=== PATIENT | female | born 1965 | race Caucasian/White ===

== ENCOUNTER 2021-01-07 05:58 | Day surgery (SDC) | payer BC ==
[~2021-01-07] VITALS: Ht 162.6 cm; Wt 59.0 kg
[~2021-01-07 05:58] MED LIST: CA C1TAB99 PO; MULT-1203 PO; TIMO.25OS OD; TRAV2.5D OD
[2021-01-07] MEDS ORDERED: 0.9%NACL 1000ML 1,000 ML IV ONE (06:10)
[2021-01-07 06:32] VITALS: BP 114/64
[2021-01-07] MEDS ORDERED: PROPOFOL 10 MG/ML 20ML VIAL IV ONE (07:42)
[2021-01-07] MEDS ORDERED: LIDOCAINE HCL 1% 20 ML VIAL ONE (07:42)
[2021-01-07] MEDS ORDERED: PHENYLEPHRINE HCL 10 MG/ML 1ML VIAL IV ONE (07:42)
[2021-01-07 08:00] VITALS: BP 85/39
[2021-01-07 08:05] VITALS: BP 95/53
[2021-01-07 08:10] VITALS: BP 96/66
[2021-01-07 08:30] VITALS: BP 108/59
== END 2021-01-07 08:32 | disposition home or self-care (01) ==
LOC: DAH 05:58 → ENDO 05:58
PROVIDERS: ATTEND Internal Medicine
DX: Z12.11 Encounter for screening for malignant neoplasm of colon (principal); K64.0 First degree hemorrhoids; Z20.822 Contact with and (suspected) exposure to COVID-19; Z80.0 Family history of malignant neoplasm of digestive organs
CPT/HCPCS: 45378; 87635; A4215 ×2; A4221; A4222; A4223; A4606; A4620; A4657; A4663; C9803; J2370; J2704; J7030

== ENCOUNTER 2021-04-08 14:10 | Emergency (ER) | payer BC ==
[~2021-04-08] VITALS: Ht 160 cm; Wt 61.2 kg
[2021-04-08] MEDS ORDERED: MORPHINE 2 MG SYG IVP ONE (14:30)
[2021-04-08] MEDS ORDERED: ONDANSETRON 4MG INJ IVP ONE (14:30)
[2021-04-08] MEDS ORDERED: 0.9%NACL 1000ML 1,000 ML IV ONE ×2 (14:30→15:52)
[2021-04-08 14:38] LABS: BASOPHILS % (AUTO) 0.3 % (0.0-5.0); EOSINOPHILS % (AUTO) 0.2 % (0.0-8.0); HEMATOCRIT 40.6 % (36-48); LYMPHOCYTES % (AUTO) 19.4 % (21.0-51.0); MEAN CORPUSCULAR HEMOGLOBIN 29.5 pg (27.0-33.0); MEAN CORPUSCULAR VOLUME 89.2 fL (79-99); MONOCYTES % (AUTO) 4.2 % (3.0-13.0); NEUTROPHILS % (AUTO) 75.6 % (40.0-77.0); PLATELET COUNT (AUTO) 255 K/uL (130-400); RED BLOOD CELL COUNT(AUTO) 4.55 MIL/uL (4.00-5.50); WHITE BLOOD COUNT (AUTO) 10.4 K/uL (4.8-10.8)
[2021-04-08 14:41] LABS: APPEARANCE,URINE Turbid (CLEAR); BILIRUBIN,URINE Negative (NEGATIVE); COLOR,URINE Yellow (YELLOW); GLUCOSE, URINE (UA) Negative (NEGATIVE); KETONES,URINE 40 mg/dL (NEGATIVE); LEUKOCYTE ESTERASE ,URINE Trace (NEGATIVE); NITRATE,URINE Negative (NEGATIVE); OCCULT BLOOD,URINE Negative (NEGATIVE); PROTEIN,URINE Negative (NEGATIVE); UROBILINOGEN,URINE 0.2 mg/dL (0.2-1.0)
[2021-04-08 14:49] LABS: CREATININE 0.8 mg/dL (0.5-1.5); POTASSIUM 3.8 mmol/L (3.5-5.1)
[2021-04-08 14:52] LABS: BACTERIA,URINE Moderate /HPF (None Seen); MUCUS,URINE Rare LPF (None Seen); SQUAMOUS EPITHELIAL CELL,UR 0-2 /HPF (0-2)
[2021-04-08 14:53] LABS: ALBUMIN 4.4 g/dL (3.5-5.0); BILIRUBIN,TOTAL 0.6 mg/dL (0.2-1.0); TOTAL PROTEIN, SERUM 8.4 g/dL (6.0-8.3)
[2021-04-08] MEDS ORDERED: CEFTRIAXONE 1G VIAL IVP ONE (15:30)
[2021-04-08] MEDS ORDERED: CEPH500B PO (15:35)
[2021-04-08] MEDS ORDERED: ACET-2247 PO (15:35)
[2021-04-08] MEDS ORDERED: ONDANSETRON 4MG INJ ONE (15:51)
[2021-04-08] MEDS ORDERED: MORPHINE 2 MG SYG ONE (15:52)
[2021-04-08 16:36] VITALS: BP 145/81
== END 2021-04-08 16:59 | disposition home or self-care (01) ==
LOC: EDH 14:10
DX: N39.0 Urinary tract infection, site not specified (principal); N94.89 Other specified conditions associated with female genital organs and menstrual cycle; Z79.899 Other long term (current) drug therapy
CPT/HCPCS: 36415; 71045; 74176; 80053; 81001; 83690; 84484; 85025; 87088; 93005; 96361; 96374; 96375; 99284; J0696; J2405; J7030

== ENCOUNTER → 2022-05-15 | Outpatient (CLI) | payer BC ==
[~2022-05-15] MED LIST changes: +ACET-2247 PO; +CEPH500B PO; +IOHEXOL 350 MG/ML 100ML INFUS..BTL IV ONE
== END | disposition home or self-care (01) ==
LOC: RAH 07:45
PROVIDERS: ATTEND Student in an Organized Health Care Education/Training Program
DX: R94.31 Abnormal electrocardiogram [ECG] [EKG] (principal)
CPT/HCPCS: 75574; Q9967

== ENCOUNTER → 2022-11-26 | Outpatient (CLI) | payer BC ==
[~2022-11-26] MED LIST changes: -IOHEXOL 350 MG/ML 100ML INFUS..BTL IV ONE
[2022-11-26 12:50] LABS: CHOLESTEROL 166 mg/dL (<200); HDL CHOLESTEROL 55 mg/dL (35-85); LDL DIRECT 100 mg/dL (0-99); TRIGLYCERIDES 103 mg/dL (30-200)
== END | disposition home or self-care (01) ==
LOC: LAB 09:10
PROVIDERS: ATTEND Student in an Organized Health Care Education/Training Program
DX: E78.5 Hyperlipidemia, unspecified (principal)
CPT/HCPCS: 36415; 80061

== ENCOUNTER → 2023-02-11 | Outpatient (CLI) | payer OTHER | END | disposition home or self-care (01) | LOC: RAH 11:24 | PROVIDERS: ATTEND Family Medicine | DX: Z00.00 Encounter for general adult medical examination without abnormal findings (principal); E55.9 Vitamin D deficiency, unspecified; M85.89 Other specified disorders of bone density and structure, multiple sites; M85.60 Other cyst of bone, unspecified site; Z78.0 Asymptomatic menopausal state | CPT/HCPCS: 77080 ==

== ENCOUNTER → 2023-06-30 | Outpatient (CLI) | payer BC ==
[2023-06-30 12:31] LABS: CHOLESTEROL 186 mg/dL (<200); HDL CHOLESTEROL 64 mg/dL (35-85); TRIGLYCERIDES 113 mg/dL (30-200)
[2023-06-30 12:59] LABS: LDL DIRECT 109 mg/dL (0-99)
== END | disposition home or self-care (01) ==
LOC: LAB 08:54
PROVIDERS: ATTEND Student in an Organized Health Care Education/Training Program
DX: E78.5 Hyperlipidemia, unspecified (principal)
CPT/HCPCS: 36415; 80061

== ENCOUNTER → 2024-04-11 | Outpatient (CLI) | payer BC ==
--- NOTE | 2024-04-11 16:12 | HMCIMG ---
DEXA BONE DENSITY SURVEY REASON: ASYMPTOMATIC MENOPAUSAL STATE COMPARISON: None TECHNIQUE: DEXA bone densitometry was performed in the lumbar spine and proximal left femur. FINDINGS: Mean bone mass density in the spine is 0.914 g/sq cm, T score -1.2 consistent with osteopenia. Femoral neck T score is -2.1, total proximal left femur T score is -1.0, findings also consistent with osteopenia. IMPRESSION: 1. Osteopenia corresponding with a moderate fracture risk.
== END | disposition home or self-care (01) ==
LOC: RAH 14:12
PROVIDERS: ATTEND Internal Medicine
DX: M85.88 Other specified disorders of bone density and structure, other site (principal); Z78.0 Asymptomatic menopausal state
CPT/HCPCS: 77080